=== PATIENT | male | born 1955 | race Caucasian/White ===

== ENCOUNTER 2016-09-28 00:04 | Inpatient (IN) | payer OTHER ==
[2016-09-28] MEDS ORDERED: 0.9 % SODIUM CHLORIDE 1,000 ML BAG IV ONE ×3 (00:19→03:26)
[2016-09-28] MEDS ORDERED: ONDANSETRON HCL IV 4 MG/2 ML VIAL IVP ONE ×2 (00:19→01:10)
--- NOTE | 2016-09-28 00:32 | Emergency Department Record ---
History of Present Illness - General Chief complaint: Nausea, Vomiting, Diarrhea Stated complaint: VOMITING,DIARHEA Time Seen by Provider: 09/28/16 00:23 Source: Patient Mode of Arrival: Ambulatory Limitations: No limitations - History of Present Illness Initial comments: The patient is here due to a 3-4 hour hx of frequent nausea, vomiting, and loose stools. He denies any AP but states he has had some abdominal cramping after the vomiting started. He denies any fever, chills, blood in the stool or vomit or back pain. The patient denies any bad food ingestion. He has had similar issues in the past with gastroenteritis and has had his gallbladder removed in the past. The patient does have a hx of chronic neutropenia and did just take a Neupogen shot yesterday. The patient also denies any recent antibiotic usage. MD complaint: Diarrhea, Nausea, Vomiting Onset/Timin -: Hour(s) Description of Vomiting: Other Description of Diarrhea: Water Associated Abdominal Pain: No Radiation: None Severity: Mild Quality: Other Consistency: Intermittent Improves with: None Worsens with: None Context: Other Associated Symptoms: Other - Related Data Home Medications Medication Instructions Recorded Confirmed Last Taken Allopurinol [Zyloprim] 100 mg PO BID 03/17/14 09/28/16 1 Day Ago Fenofibrate Nanocrystallized 48 mg PO DAILY 03/17/14 09/28/16 1 Day Ago [Tricor] Filgrastim [Neupogen] 60 mcg IJ ASDIR 03/17/14 09/28/16 09/27/16 Krill Oil 500 mg PO DAILY 03/17/14 09/28/16 1 Day Ago Lisinopril 5 mg PO DAILY 03/17/14 09/28/16 1 Day Ago Metformin HCl 1,000 mg MC BID 03/17/14 09/28/16 1 Day Ago Mirtazapine 45 mg PO QHS 03/17/14 09/28/16 1 Day Ago Multivitamin [Multi-Vitamin Daily] 1 each PO DAILY 03/17/14 09/28/16 1 Day Ago Duloxetine HCl [Cymbalta] 120 mg PO DAILY 10/10/15 09/28/16 1 Day Ago Finasteride [Proscar] 5 mg PO DAILY 10/10/15 09/28/16 1 Day Ago Insulin Glargine,Hum.rec.anlog 60 unit SQ BID 10/10/15 09/28/16 09/28/16 [Lantus] Atorvastatin Calcium [Lipitor] 20 mg PO DAILY 09/28/16 09/28/16 Unknown Cholecalciferol (Vitamin D3) 2,000 unit PO DAILY 09/28/16 09/28/16 Unknown [Vitamin D3] Allergies Allergy/AdvReac Type Severity Reaction Status Date / Time epinephrine Allergy muscle Verified 10/10/15 07:12 tension/FAUSTINO gemfibrozil Allergy hypergylcem Verified 10/10/15 07:12 ia Travel Screening - Travel/Exposure Within Last 30 Days Have you traveled within the last 30 days?: No - Travel/Exposure Within Last Year Have you traveled outside the [place] in the last year?: No - Additonal Travel Details Have you been exposed to anyone with a communicable illness?: No - Travel Symptoms Symptom Screening: None Review of Systems Constitutional: Reports: Malaise. Denies: Chills, Fever Eyes: Denies: Eye discharge ENT: Denies: Congestion, Dental pain, Other Respiratory: Denies: Cough, Dyspnea Cardiovascular: Denies: Arrhythmia, Chest pain Past Medical History - SOCIAL HISTORY Smoking Status: Former smoker Alcohol Use: Occassional Alcohol Use Comment: 2 drinks per week Drug Use: None - RESPIRATORY Hx Respiratory Disorders: No - CARDIOVASCULAR Hx Cardio Disorders: No - NEURO Hx Neuro Disorders: No - GI Hx GI Disorders: No - Hx Genitourinary Disorders: No - ENDOCRINE Hx Endocrine Disorders: Yes Hx Diabetes: Yes Hx Thyroid Disease: No - MUSCULOSKELETAL Hx Musculoskeletal Disorders: No - PSYCH Hx Psych Problems: Yes Hx Depression: Yes - HEMATOLOGY/ONCOLOGY Hx Hematology/Oncology Disorders: Yes Comment:: severe chronic neutropenia Family Medical History Any Significant Family History?: No Hx Cancer: Brother/Sister Hx Heart Disease: Grandparents Hx Stroke: Grandparents Physical Exam - General General Appearance: Alert, Oriented x3, Cooperative, No acute distress - Head Head exam: Atraumatic, Normocephalic, Normal inspection - Eye Eye exam: Normal appearance, PERRL - ENT Throat exam: Normal inspection. negative: Tonsillar erythema, Tonsillar exudate - Neck Neck exam: Normal inspection, Full ROM. negative: Tenderness - Respiratory Respiratory exam: Normal lung sounds bilaterally. negative: Respiratory distress - Cardiovascular Cardiovascular Exam: Regular rate, Normal rhythm, Normal heart sounds - GI/Abdominal GI/Abdominal exam: Soft, Normal bowel sounds. negative: Guarding, Rebound, Rigid, Tenderness - Extremities Extremities exam: Normal inspection, Full ROM, Normal capillary refill. negative: Tenderness - Neurological Neurological exam: Alert, Normal gait. negative: Abnormal gait, Motor sensory deficit Course Vital Signs 09/28/16 00:08 Temperature 97.5 F L Pulse Rate 113 H Respiratory 24 Rate Blood Pressure 161/109 Pulse Ox 97 - Reevaluation(s) Reevaluation #1: The patient is just finishing his 2nd liter of IVF and states he has no pain but is still quite nauseated. He has had 4 loose stools in the last hour. On exam his abdomen is very soft and nontender in all 4 quads. The patient's abdominal CT does not demonstrate any acute abnormalities. Due to the patient's condition not improving we will admit the patient for hydration and IV Cipro. 09/28/16 02:12 Reevaluation #2: The patient denies any new issues. He denies any AP, CP, SOB or any back pain. He is still nauseated and is dry heaving at times. On exam his abdomen is nontender in all 4 quads. 09/28/16 02:34 Reevaluation #3: The patient did have an episode of decreased BP associated with a blanching erythematous rash all over. The rash is not itchy and the patient did not have a fever on recheck. On exam his lungs were clear bilaterally. 09/28/16 03:30 Reevaluation #4: The patient is doing better at this time. His BP is stable at 100/65 with a HR of 90. The patient is resting comfortably in no pain or discomfort. He no longer is lightheaded or dizzy and his CXR was normal. We did change his admission to a monitored bed so they can monitor his BP and HR. Presently his 02 sat is 98% on 2 L 02. On repeat his temp is normal but he still does have a diffuse erythroderma blanching rash all over that is not pruritic. 09/28/16 04:01 09/28/16 04:04 Medical Decision Making - Data Complexity MDM Data: Labs Ordered and/or Reviewed, X-Ray Ordered and/or Reviewed, EKG Ordered and/or Reviewed - Lab Data Result diagrams: 09/28/16 00:16 09/28/16 00:16 - EKG Data -: EKG Interpreted by Me (Sinus tach at 112, Neg ischemic changes.) - Radiology Data Radiology results: Report reviewed (CT: No acute changes requiring surgery, Prob Mesenteric Adenitis CXR: Neg for any acute abnormality.) Disposition Disposition: Admit Clinical Impression: Diarrhea, infectious, adult Diarrhea Qualifiers: Diarrhea type: unspecified type Qualified Code(s): R19.7 - Diarrhea, unspecified Disposition: Still a Patient at [facility] Decision to Admit: Admit from ER Decision to Admit Date: 09/28/16 Decision to Admit Time: 02:14 Accepting Physician: Maria Teresa Time Discussed w/Accepting Physician: 02:14 Time of Disposition: 02:15
[2016-09-28 00:42] LABS: MEAN CELL VOLUME 88.8 fl (81-97); MEAN PLATELET VOLUME 10.2 fl (7.4-10.4); RED CELL DISTRIBUTION WIDTH 12.8 % (11.5-14.5)
[2016-09-28 00:49] LABS: HEMATOCRIT 47.5 % (42.0-52.0); MEAN CORPUSCULAR HEMOGLOBIN 32.3 pg (27-33); MEAN CORPUSCULAR HGB CONC 35.8 g/dl (32-36); PLATELET COUNT 245 K/uL (130-400); RED BLOOD COUNT 5.25 M/uL (4.40-5.70); WHITE BLOOD COUNT W/O DIFF 23.3 K/uL (4.2-12.2)
[2016-09-28 00:57] LABS: ACETONE,SERUM NEGATIVE (NEGATIVE)
[2016-09-28 01:04] LABS: ALBUMIN 4.8 gm/dL (3.5-5.0); ALKALINE PHOSPHATASE 194 U/L (38-126); ALT/SGPT 49 U/L (21-72); ANION GAP 16.5 (7-16); AST/SGOT 28 U/L (17-59); BILIRUBIN,TOTAL 1.21 mg/dL (0.2-1.3); BLOOD UREA NITROGEN 24 mg/dL (9-20); CARBON DIOXIDE 23.5 mmol/L (22-30); CREATININE 1.2 mg/dL (0.66-1.25); EST GLOMERULAR FILTRATION RATE > 60 ml/min; GLUCOSE,RANDOM 246 mg/dL (70-110); LIPASE 54 U/L (23-300); TOTAL PROTEIN 7.4 gm/dL (6.3-8.2)
[2016-09-28] MEDS ORDERED: PROMETHAZINE HCL 25 MG/ML VIAL IVP ONE (02:06)
[2016-09-28] MEDS ORDERED: CIPROFLOXACIN LACTATE/D5W 400 MG in DEXTROSE 1 BAG IVPB ONE (02:11)
[2016-09-28 02:47] LABS: CREATINE PHOSPHOKINASE 53 U/L (55-170)
[2016-09-28 03:00] LABS: CKMB 3.3 ug/L (0-6)
[2016-09-28 03:03] LABS: TROPONIN I < 0.012 ng/mL (0.00-0.034)
[2016-09-28] MEDS ORDERED: DIPHENHYDRAMINE HCL IV 50 MG/ML VIAL IVP ONE ×2 (03:28→04:06)
[2016-09-28] MEDS ORDERED: CEFTRIAXONE SODIUM 1 GM in 0.9 % SODIUM CHLORIDE 100ML 100 ML IVPB ONE (03:32)
[2016-09-28] MEDS ORDERED: METRONIDAZOLE IVPB 500 MG in SODIUM CHLORIDE 1 BAG IVPB ONE (04:29)
[2016-09-28] MEDS ORDERED: ONDANSETRON HCL IV 4 MG/2 ML VIAL IVP PRN (06:32)
[2016-09-28] MEDS ORDERED: CIPROFLOXACIN LACTATE/D5W 400 MG in DEXTROSE 1 BAG IVPB SCH (06:32)
[2016-09-28 06:51] LABS: MEAN PLATELET VOLUME 10.2 fl (7.4-10.4); RED CELL DISTRIBUTION WIDTH 13.9 % (11.5-14.5)
[2016-09-28 06:53] LABS: BLOOD UREA NITROGEN 25 mg/dL (9-20); CREATININE 1.2 mg/dL (0.66-1.25); EST GLOMERULAR FILTRATION RATE > 60 ml/min; GLUCOSE,RANDOM 251 mg/dL (70-110); LACTIC ACID 2.4 mmol/L (0.7-2.1)
[2016-09-28 07:01] LABS: HEMATOCRIT 43.8 % (42.0-52.0); HEMOGLOBIN 16.1 gm/dl (14.0-18.0); MEAN CELL VOLUME 86.6 fl (81-97); MEAN CORPUSCULAR HEMOGLOBIN 31.8 pg (27-33); MEAN CORPUSCULAR HGB CONC 36.8 g/dl (32-36); PLATELET COUNT 188 K/uL (130-400); RED BLOOD COUNT 5.06 M/uL (4.40-5.70)
[2016-09-28 07:02] LABS: WHITE BLOOD COUNT W/O DIFF 25.7 K/uL (4.2-12.2)
[2016-09-28 07:07] LABS: PLATELET ESTIMATE NORMAL (NORMAL)
[2016-09-28] MEDS: PANTOPRAZOLE SODIUM IV 40 MG VIAL IV SCH (08:25)
[2016-09-28] MEDS ORDERED: METFORMIN 500 MG TABLET PO SCH (10:00)
[2016-09-28] MEDS ORDERED: LEVEMIR FLEXTOUCH 100 UNIT/ML INSULIN PEN SQ SCH (10:00)
[2016-09-28] MEDS ORDERED: ALLOPURINOL 100 MG TAB PO SCH (10:00)
[2016-09-28] MEDS: DULOXETINE HCL 30 MG CAPSULE.DR PO SCH (11:41)
[2016-09-28] MEDS: METRONIDAZOLE 250 MG TABLET PO SCH ×2 (11:41→17:38)
[2016-09-28] MEDS: LISINOPRIL 5 MG TABLET PO SCH (11:42)
[2016-09-28] MEDS: Non-Formulary MISC (Finasteride [Proscar] 5 MG) PO SCH (11:51)
[2016-09-28 11:56] LABS: URINE APPEARANCE CLEAR; URINE BILIRUBIN NEGATIVE (NEGATIVE); URINE BLOOD NEGATIVE (NEGATIVE); URINE COLOR YELLOW; URINE KETONE NEGATIVE (NEGATIVE); URINE LEUKOCYTE ESTERASE NEGATIVE (NEGATIVE); URINE NITRITE NEGATIVE (NEGATIVE); URINE UROBILINOGEN 0.2 E.U./dL (0.20 - 1.00)
[2016-09-28] MEDS: 0.9 % SODIUM CHLORIDE 1000ML 1,000 ML IV PRN ×2 (14:42→21:31)
--- NOTE | 2016-09-28 14:46 | History and Physical Report ---
DATE OF DICTATION: 09/28/2016. CHIEF COMPLAINT: Diarrhea and vomiting. HISTORY OF PRESENT ILLNESS: This 52-year-old male presented with three to four hours of vomiting and diarrhea. He has had about 15 stools since 4:00 in the afternoon, 15 diarrhea stools, and 15 vomiting episodes. He came into the emergency room and was given intravenous fluids, and Dr. Chand admitted him to the hospital for further intravenous fluids and care for his C. difficile toxin which is positive. PAST MEDICAL HISTORY: He has idiopathic neutropenia; he uses Neupogen shots every other day. 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 Santos at the [facility]. His primary physician at the [facility] in [place] is My Roland. Diabetes. PAST SURGICAL HISTORY: Adult circumcision, sinus surgery, tonsillectomy, cholecystectomy, right rotator cuff surgery. MEDICATIONS ON ADMISSION: Metformin 1,000 mg b.i.d., lisinopril 5.0 mg daily. Neupogen 60 mg every other day; he gives the shots himself. Vitamin D 2,000 units a day, Zyloprim 100 mg b.i.d., krill oil 500 mg daily, Proscar 5.0 mg daily, fenofibrate 48 mg daily, Cymbalta 120 mg daily, mirtazapine 45 mg at h.s. which is Remeron. Multiple vitamins one q. daily, insulin 60 units of Lantus b.i.d. ALLERGIES: Epinephrine and Gemfibrozil. FAMILY/PSYCHOSOCIAL HISTORY: Unremarkable. He is a former smoker; he quit in 1997. He drinks two drinks per week. REVIEW OF SYSTEMS: HEENT: No upper respiratory infection symptoms, cough, cold, or congestion. Cardiovascular: No chest pain, palpitations, or arrhythmias. Respiratory: No cough, cold, or congestion. Gastrointestinal: See Chief Complaint. Nausea, vomiting, and diarrhea. He ate at [employer]. about two weeks ago. Genitourinary: No dysuria, hematuria, frequency, or burning on urination. Musculoskeletal: No joint or bone abnormalities. Neurologic: No cerebrovascular accident, paralysis, or paraesthesias. Endocrine: Diabetes mellitus. No hypothyroidism. PHYSICAL EXAMINATION: General: Height is 6 feet. Weight is 227 pounds. Vital Signs: Temperature is 98.1, pulse is 96, blood pressure is 127/62, respiratory rate is 18, pulse oximetry is 95% on room air. HEENT: Pupils are equal, round, and reactive to light and accommodation. Extraocular muscles are intact. Funduscopic examination is benign. The tympanic membranes are leong. Neck: The neck is supple. No jugular venous distension. No hepatojugular reflex. No carotid bruit. The thyroid is smooth. Cardiovascular: Regular rate and rhythm without murmurs, clicks, rubs, or gallops. Respiratory: Clear to auscultation and percussion. Abdomen: Soft and slightly painful in all four quadrants. No rebound or rigidity or peritoneal signs. No hepatosplenomegaly. Extremities: No pitting edema. No cyanosis. No clubbing. Full range of motion. Peripheral pulses are good. Breasts: Normal male breasts. Rectal and Genitalia: Deferred. Neurological Examination: Cranial nerves II through XII are intact. No gross defect. Sensation is normal. Strength is normal. Deep tendon reflexes are equal bilaterally. Babinski is negative. Mental Status: Alert and oriented times three. IMPRESSIONS: 1. C. difficile gastroenteritis. 2. Dehydration. 3. Vomiting and diarrhea. PLAN: Oral Flagyl 500 mg q. daily and intravenous fluids. Christos Morel D.O. Date Time JOB NUMBER: [id number] MTDD
[2016-09-28] MEDS: HYDROMORPHONE HCL 1 MG/ML CPJ IVP PRN (19:02)
[2016-09-28] MEDS ORDERED: MIRTAZAPINE 15 MG TABLET PO SCH (22:00)
[2016-09-29] MEDS: METRONIDAZOLE 250 MG TABLET PO SCH ×2 (01:37→09:56)
[2016-09-29] MEDS: HYDROMORPHONE HCL 1 MG/ML CPJ IVP PRN (01:58)
[2016-09-29 08:25] LABS: LACTIC ACID 0.8 mmol/L (0.7-2.1)
[2016-09-29] MEDS: Non-Formulary MISC (Finasteride [Proscar] 5 MG) PO SCH (09:52)
[2016-09-29] MEDS: PANTOPRAZOLE SODIUM IV 40 MG VIAL IV SCH (09:55)
[2016-09-29] MEDS: DULOXETINE HCL 30 MG CAPSULE.DR PO SCH (09:56)
[2016-09-29] MEDS: LISINOPRIL 5 MG TABLET PO SCH (09:56)
[2016-09-29] MEDS ORDERED: FILGRASTIM IJ SCH (10:00)
--- NOTE | 2016-09-29 12:35 | Discharge Note ---
Discharge Note - Date Date of Discharge Note: 09/29/16 Disposition: Home, Self-Care Instructions: Metronidazole (By mouth) Additional Instructions: eat yogurt bland diet [facility] call front office agent next week and informed him what happened and tell them we recommended he skip todays does of neupogen because white count elevated and then resume it in 48 hours Prescriptions: Metronidazole [Flagyl] 500 mg PO TID #42 tablet Referrals: VEENA JONES [Primary Care Provider] - Forms: Patient Portal Access
[2016-09-29 18:27] LABS: BLOOD UREA NITROGEN 13 mg/dL (9-20); CREATININE 1.1 mg/dL (0.66-1.25); EST GLOMERULAR FILTRATION RATE > 60 ml/min; GLUCOSE,RANDOM 98 mg/dL (70-110)
--- NOTE | 2016-10-01 07:32 | CT SCAN REPORT ---
EXAM: CT OF THE ABDOMEN AND PELVIS WITHOUT CONTRAST HISTORY: VOMITING AND DIARRHEA. TECHNIQUE: CT of the abdomen and pelvis was performed without oral or IV contrast. This limits evaluation of bowel and solid visceral organs. Comparison: Prior CT from 10/10/15. FINDINGS: Limited evaluation of the lung bases shows partial visualization of multiple bilateral pulmonary nodules, however, these were also present on the prior exam. The osseous structures are grossly intact. Probable fatty infiltrative changes to the liver, as before. The spleen is enlarged at 18 cm. The adrenal glands and pancreas are unremarkable. The gallbladder is surgically absent. Negative for urinary tract calculus or hydronephrosis. No gross evidence for bowel obstruction. No free air or free fluid. Occasional sigmoid diverticula without CT evidence for diverticulitis. The appendix is not identified with certainty. No pericecal inflammation. Severe nonspecific, nonenlarged as well as mildly enlarged mesenteric lymph nodes are present. These are also unchanged from the prior exam. The largest is in the central mesentery and measures 1.9 x 1.3 cm. Fat containing right inguinal hernia. The prostate is mildly enlarged. Correlate with PSA level. IMPRESSION: 1. PARTIAL VISUALIZATION OF MULTIPLE BILATERAL PULMONARY NODULES, THESE WERE ALSO PRESENT PREVIOUSLY. 2. FATTY INFILTRATIVE CHANGE TO THE LIVER. STABLE SPLENOMEGALY AT 18 CM. 3. SEVERAL NONENLARGED WELL ENLARGED MESENTERIC LYMPH NODES. THESE WERE ALSO PRESENT PREVIOUSLY AND REMAIN NONSPECIFIC. 4. FAT CONTAINING RIGHT INGUINAL HERNIA. OCCASIONAL SIGMOID DIVERTICULA WITHOUT CT EVIDENCE FOR DIVERTICULITIS. JOB NUMBER: [id number] [facility]
--- NOTE | 2016-10-01 07:39 | RADIOLOGY REPORT ---
EXAM: PORTABLE CHEST HISTORY: DIFFICULTY BREATHING. TECHNIQUE: A semi-erect portable view of the chest was obtained. Comparison: None. Encounter: Initial. FINDINGS: Partial visualization of vague nodules bilaterally. Subsegmental atelectasis in the right lung base. The lungs are otherwise clear. The heart size is normal. No pneumothorax. IMPRESSION: PARTIAL VISUALIZATION OF BILATERAL PULMONARY NODULES. CONSIDER FURTHER ASSESSMENT WITH CT CHEST. JOB NUMBER: [id number] MTDD
--- NOTE | 2016-10-03 16:56 | Discharge Summary ---
DATE OF ADMISSION: 09/28/2016 DATE OF DISCHARGE: 09/29/2016 at 11:30 a.m. DISCHARGE DIAGNOSES: 1. C difficile gastroenteritis. 2. Neutropenia requiring Neupogen shots. His white count is elevated. I called the Hematology Fellow, Dr. Lott, who is covering for Dr. Santos, and he recommended skipping one dose of the Neupogen, today's dose, and go back on it Saturday, calling Dr. Santos next week to kind of go over what he is doing and they may want to see him before his October 2016 appointment. 3. Diabetes mellitus, using Lantus. Recommended he go back to Lantus once a day until sugars start to come up, then going to twice a day. 4. Hypercholesterolemia. 5. Anxiety. ATTENDING PHYSICIAN: Christos Morel DO REASON FOR HOSPITALIZATION: Diarrhea and vomiting. This 52-year-old male presented to the Emergency Department with 3 to 4 hours of vomiting and diarrhea. He had about 15 stools since 4 a.m. and 15 vomiting episodes. He was seen by Dr. Chand and diagnosed with C difficile gastroenteritis. Admitted to the hospital for IV fluids, nausea medication, and start him Flagyl 500 mg 3 times a day orally. IV fluids. SIGNIFICANT FINDINGS FROM EXAMINATION: As stated, C diff positive. His white count was 23,300 when he came in. It went up to 25,700, which is expected with the C diff gastroenteritis and the Neupogen shots that he is getting every [address] revealed appendix was normal. Enlarged lymph nodes throughout the mesentery. The findings are nonspecific. Incidentally noted left-sided inferior vena cava, which is a normal anatomic variant. Pulmonary nodules in bilateral lower lungs measuring 12 mm. These were present on the 2013 CT scan; however, the radiologist did not have the images to compare. EKG showing normal sinus tachycardia. No acute ST/T-wave changes. Laboratory: WBC as stated was 23,300. His hemoglobin was 16.1. Bands were 69 and lymphs were 12. His potassium was 4.1. BUN 25. Creatinine was 1.2. Glucose was running about 152, 145. We held has Lantus because he was not eating, and when he started eating on the day of discharge, we recommended going back to Lantus once a day until his sugars start to go up and go back to twice a day. His lactic acid was 2.4 in the Emergency Department, and normalized at 0.8. His troponin I was negative. CK-MB was negative. Lipase was normal. The UA showing specific gravity of 1030. Hemoccult stool was negative. A few white cells observed. The C diff toxin was positive. THERAPY PROVIDED: IV fluids, Zofran, and Phenergan. Patient improved dramatically with the oral Flagyl, and he had 1 stool in the last 12 hours. He wants to go home. He ate a meal, and he is feeling much better. CONDITION ON DISCHARGE: Much improved. DISCHARGE INSTRUCTIONS: Follow up with his primary doctor at the [facility], which is Dr. My Roland in 1 to 2 to 3 weeks. He is scheduled about 3 weeks, sooner if he is having trouble. Follow up with the motor expert, Dr. Santos by calling tomorrow, mentioning that I called the Fellow at [place], and we held 1 dose of Neupogen because the white count was elevated, and he is to go back on his schedule then every 48 hours after that, this Saturday coming. Continue his home medication of metformin 1000 mg b.i.d., lisinopril 5 mg daily, Neupogen starting on Saturday 60 mg every other day (he gives himself these shots), vitamin D 2000 units a day, Zyloprim 100 mg b.i.d., krill oil 500 mg daily, Proscar 5 mg daily, fenofibrate 48 mg daily, Cymbalta 120 mg daily, mirtazapine 45 mg at bedtime, and insulin/Lantus 60 mg once a day until his sugars start to go up, then he can go back to twice a day if his glucose goes high. ADDENDUM He wanted his prescription so that he could drive to the [facility] in [place] on Saturday. However, he wanted me to call the cost of it. I did not want him to have a 24-hour stopping of the Flagyl while he waits for the [facility] to pay for the prescription. We called the pharmacy, [facility], they said 250 mg pills for 14-day supply, 500 three times a day would cost him 10 dollars. So I called into [facility] 250 mg pills, 2 pills 3 times a day for 14 days. JULIO C
== END 2016-09-29 13:55 | disposition home or self-care (01) | DRG 373 ==
LOC: ER 00:04 → MEDSURG 03:08
PROVIDERS: ADMIT Emergency Medicine; ATTEND Emergency Medicine
DX: A04.7 Enterocolitis due to Clostridium difficile (principal); E86.0 Dehydration
CPT/HCPCS: 36416; 71010; 74176; 80048; 80076; 81003; 82009; 82272; 82550; 82553; 82948; 83605; 83690; 84484; 85027; 86140; 87427; 87493; 89055; 93005; 93010; 96361; 96365; 96375; 96376; 99223; 99239; 99285; C9113; J1170; J1200; J2405; J2550; J7030

== ENCOUNTER 2016-11-19 19:35 | Emergency (ER) | payer OTHER ==
--- NOTE | 2016-11-19 21:22 | Emergency Department Record ---
History of Present Illness - General Chief Complaint: Fall Injury Stated Complaint: FALL Time Seen by Provider: 11/19/16 20:25 Source: Patient Mode of Arrival: Ambulatory Limitations: No limitations - History of Present Illness Initial Comments: The patient is here due to injuring the L side of his Jaw. He fell a few feet of a ladder and banged the L side of his jaw on an object. He had no head injury , neck injury or LOC. Now he is having pain over his jaw. He denies any malloclusion. He also denies any PARKER, neck pain, CP, SOB. The patient is not on any blood thinners. 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 Place Fall Occurred: Other Loss of Consciousness: None Prolonged Down Time?: No Location: Face Severity: Moderate Severity scale (1-10): 8 Quality: Aching - Related Data Home Medications Medication Instructions Recorded Confirmed Last Taken Allopurinol [Zyloprim] 100 mg PO BID 03/17/14 09/28/16 1 Day Ago ~10/09/15 Fenofibrate Nanocrystallized 48 mg PO DAILY 03/17/14 09/28/16 1 Day Ago [Tricor] ~10/09/15 Filgrastim [Neupogen] 60 mcg IJ Q48H 03/17/14 09/28/16 09/27/16 Krill Oil 500 mg PO DAILY 03/17/14 09/28/16 1 Day Ago ~10/09/15 Mirtazapine 45 mg PO QHS 03/17/14 09/28/16 1 Day Ago ~10/09/15 Multivitamin [Multi-Vitamin Daily] 1 each PO DAILY 03/17/14 09/28/16 1 Day Ago ~10/09/15 Duloxetine HCl [Cymbalta] 120 mg PO DAILY 10/10/15 09/28/16 1 Day Ago ~10/09/15 Finasteride [Proscar] 5 mg PO DAILY 10/10/15 09/28/16 1 Day Ago ~10/09/15 Insulin Glargine,Hum.rec.anlog 60 unit SQ BID 10/10/15 09/28/16 09/28/16 [Lantus] Cholecalciferol (Vitamin D3) 2,000 unit PO DAILY 09/28/16 09/28/16 Unknown [Vitamin D3] Lisinopril [Prinivil] 5 mg PO DAILY 09/28/16 09/28/16 Unknown Metformin HCl 1,000 mg PO BID 09/28/16 09/28/16 Unknown Previous Rx's Medication Instructions Recorded Metronidazole [Flagyl] 500 mg PO TID #42 tablet 09/29/16 Allergies Allergy/AdvReac Type Severity Reaction Status Date / Time epinephrine Allergy muscle Verified 10/10/15 07:12 tension/FAUSTINO gemfibrozil Allergy hypergylcem Verified 10/10/15 07:12 ia promethazine HCl Allergy RASH Verified 09/29/16 04:43 [From Phenergan] Travel Screening - Travel/Exposure Within Last 30 Days Have you traveled within the last 30 days?: No Review of Systems Constitutional: Denies: Chills, Fever Eyes: Denies: Eye discharge ENT: Denies: Congestion Respiratory: Denies: Cough, Dyspnea Past Medical History - SOCIAL HISTORY Smoking Status: Former smoker Alcohol Use: None Drug Use: None - RESPIRATORY Hx Respiratory Disorders: Yes Hx Pneumonia: Yes - CARDIOVASCULAR Hx Cardio Disorders: No - NEURO Hx Neuro Disorders: Yes Hx Neuropathy: Yes 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 - GI Hx GI Disorders: No Hx Abdominal Pain: Yes Hx Nausea/Vomiting: Yes - Hx Genitourinary Disorders: Yes Hx Kidney Stones: Yes - ENDOCRINE Hx Endocrine Disorders: Yes Hx Diabetes: Yes Hx Thyroid Disease: No - MUSCULOSKELETAL Hx Musculoskeletal Disorders: No - PSYCH Hx Psych Problems: Yes Hx Depression: Yes - HEMATOLOGY/ONCOLOGY Hx Hematology/Oncology Disorders: Yes Comment:: severe chronic neutropenia Family Medical History Any Significant Family History?: Yes Hx Cancer: Brother/Sister Hx Heart Disease: Grandparents Hx Stroke: Grandparents Physical Exam - General General Appearance: Alert, Oriented x3, Cooperative, No acute distress - Head Head exam: Atraumatic, Normocephalic, Normal inspection - Eye Eye exam: Normal appearance, PERRL - ENT ENT exam: Normal exam, Mucous membranes moist, Normal external ear exam, Normal orophraynx, TM's normal bilaterally, Other (There is tenderness to the L side of the mandible but no swelling or bruising is appreciated.) Throat exam: Normal inspection. negative: Tonsillar erythema, Tonsillar exudate - Neck Neck exam: Normal inspection, Full ROM. negative: Tenderness - Respiratory Respiratory exam: Normal lung sounds bilaterally. negative: Respiratory distress - Cardiovascular Cardiovascular Exam: Regular rate, Normal rhythm, Normal heart sounds Course Vital Signs 11/19/16 20:19 Temperature 98.3 F Pulse Rate [ 94 H Pulse Ox Probe] Respiratory 16 Rate Blood Pressure 137/72 [Left Arm] Pulse Ox 97 - Reevaluation(s) Reevaluation #1: The patient is doing well. He still has no swelling or bruising to the L mandible. I did explain to him the xrays are neg. He is to return home and take his home pain medicines and use ice if needed. 11/19/16 21:31 Medical Decision Making - Data Complexity MDM Data: X-Ray Ordered and/or Reviewed (Mandible: Neg.) Disposition Disposition: Discharge Clinical Impression: Contusion of mandibular joint area Qualifiers: Encounter type: initial encounter Qualified Code(s): S00.83XA - Contusion of other part of head, initial encounter Disposition: Home, Self-Care Condition: (1) Good Instructions: Contusion in Adults (ED) Additional Instructions: Please use ice to the area as needed for 2 days for pain. Take your home pain medicines if needed. Return to the ER for any problems or issues. Forms: Patient Portal Access Time of Disposition: 21:23
== END 2016-11-19 21:49 | disposition home or self-care (01) ==
LOC: ER 19:35
DX: S00.83XA Contusion of other part of head, initial encounter (principal); W11.XXXA Fall on and from ladder, initial encounter
CPT/HCPCS: 70110; 99283

== ENCOUNTER 2017-01-11 19:50 | Emergency (ER) | payer OTHER ==
[2017-01-11] MEDS ORDERED: ONDANSETRON HCL IV 4 MG/2 ML VIAL IV ONE (20:14)
[2017-01-11] MEDS ORDERED: 0.9 % SODIUM CHLORIDE 1,000 ML BAG IV ONE ×2 (20:14→22:49)
--- NOTE | 2017-01-11 20:19 | Emergency Department Record ---
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 Today he awoke feeling terrible, stomach bothering him everywhere, and proceeded to have nausea, vomiting of mostly dry heaves, and TNTC episodes of diarrhea along with feeling feverish and chilling. He has not taken antibiotics in the past 3 months. He has low back pain but this is unchanged from his chronic low back pain of many months. MD complaint: Diarrhea, Nausea, Vomiting Onset/Timin -: Hour(s) Description of Diarrhea: Water Associated Abdominal Pain: No Location: Other Severity scale (1-10): 7 Associated Symptoms: Nausea/vomiting - Related Data Home Medications Medication Instructions Recorded Confirmed Last Taken Allopurinol [Zyloprim] 100 mg PO BID 03/17/14 01/11/17 01/10/17 Fenofibrate Nanocrystallized 48 mg PO DAILY 03/17/14 01/11/17 01/10/17 [Tricor] Filgrastim [Neupogen] 60 mcg IJ Q48H 03/17/14 01/11/17 01/10/17 Mirtazapine 45 mg PO QHS 03/17/14 01/11/17 01/10/17 Multivitamin [Multi-Vitamin Daily] 1 each PO DAILY 03/17/14 01/11/17 01/10/17 Duloxetine HCl [Cymbalta] 120 mg PO DAILY 10/10/15 01/11/17 01/10/17 Finasteride [Proscar] 5 mg PO DAILY 10/10/15 01/11/17 01/10/17 Insulin Glargine,Hum.rec.anlog 60 unit SQ BID 10/10/15 01/11/17 01/10/17 [Lantus] Lisinopril [Prinivil] 5 mg PO DAILY 09/28/16 01/11/17 01/10/17 Metformin HCl 1,000 mg PO BID 09/28/16 01/11/17 01/10/17 Albiglutide [Tanzeum] 50 mg SQ WEEKLY 01/11/17 01/11/17 01/11/17 21:18 Alprostadil [Caverject] 40 mcg IC ASDIR PRN 01/11/17 01/11/17 Unknown Atorvastatin Calcium 80 mg PO DAILY 01/11/17 01/11/17 01/10/17 Cholecalciferol (Vitamin D3) 800 unit PO DAILY 01/11/17 01/11/17 01/10/17 [Vitamin D] Clobetasol Propionate/Emoll 30 gm TP ASDIR PRN 01/11/17 01/11/17 Unknown [Clobetasol Emollient 0.05% Crm] Naproxen [Naprosyn] 500 mg PO DAILY PRN 01/11/17 01/11/17 01/10/17 Tadalafil [Cialis] 20 mg PO WEEKLY 01/11/17 01/11/17 01/06/17 Urea [Ureacin-20] 113.4 gm TP ASDIR PRN 01/11/17 01/11/17 Unknown Allergies Allergy/AdvReac Type Severity Reaction Status Date / Time epinephrine Allergy muscle Verified 10/10/15 07:12 tension/FAUSTINO gemfibrozil Allergy hypergylcem Verified 10/10/15 07:12 ia promethazine HCl Allergy RASH Verified 09/29/16 04:43 [From Phenergan] Travel Screening - Travel/Exposure Within Last 30 Days Have you traveled within the last 30 days?: No - Travel Symptoms Symptom Screening: None Review of Systems Reviewed: No additional complaints except as noted below Constitutional: Reports: As per HPI. Denies: Chills, Fever, Malaise, Night sweats, Weakness, Weight change Eyes: Reports: As per HPI. Denies: Eye discharge, Eye pain, Photophobia, Vision change ENT: Reports: As per HPI. Denies: Congestion, Dental pain, Ear pain, Epistaxis , Hearing loss, Throat pain Respiratory: Reports: As per HPI. Denies: Cough, Dyspnea, Hemoptysis, Stridor, Wheezes Cardiovascular: Reports: As per HPI. Denies: Arrhythmia, Chest pain, Dyspnea on exertion, Edema, Murmurs, Orthopnea, Palpitations, Paroxysmal nocturnal dyspnea, Rheumatic Fever, Syncope Endocrine: Reports: As per HPI. Denies: Fatigue, Heat or cold intolerance, Polydipsia, Polyuria Gastrointestinal: Reports: As per HPI. Denies: Abdominal pain, Constipation, Diarrhea, Hematemesis, Hematochezia, Melena, Nausea, Vomiting Genitourinary: Reports: As per HPI. Denies: Dysuria, Frequency, Hematuria, Incontinence, Retention, Testicular pain, Testicular mass, Urgency Musculoskeletal: Reports: As per HPI. Denies: Arthralgia, Back pain, Gout, Joint swelling, Myalgia, Neck pain Skin: Reports: As per HPI. Denies: Bruising, Change in color, Change in hair/ nails, Lesions, Pruritus, Rash Neurological: Reports: As per HPI. Denies: Abnormal gait, Confusion, Headache, Numbness, Paresthesias, Seizure, Tingling, Tremors, Vertigo, Weakness Psychiatric: Reports: As per HPI. Denies: Anxiety, Auditory hallucinations, Depression, Homicidal thoughts, Suicidal thoughts, Visual hallucinations Hematological/Lymphatic: Reports: As per HPI. 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 - GI Hx GI Disorders: No Hx Abdominal Pain: Yes Hx Nausea/Vomiting: Yes Comment:: C-dif x2 in last 15 mos (12/2016) - Hx Genitourinary Disorders: Yes Hx Kidney Stones: Yes - ENDOCRINE Hx Endocrine Disorders: Yes Hx Diabetes: Yes Hx Thyroid Disease: No - MUSCULOSKELETAL Hx Musculoskeletal Disorders: No - PSYCH Hx Psych Problems: Yes Hx Depression: Yes - HEMATOLOGY/ONCOLOGY Hx Hematology/Oncology Disorders: Yes Comment:: severe chronic neutropenia Family Medical History Any Significant Family History?: Yes Hx Cancer: Brother/Sister Hx Heart Disease: Grandparents Hx Stroke: Grandparents Physical Exam - General General Appearance: Alert, Oriented x3, Cooperative, Moderate distress - Head Head exam: Normal inspection - Eye Eye exam: Normal appearance, PERRL Pupils: Normal accommodation - ENT ENT exam: Normal exam, Mucous membranes dry, Normal external ear exam, Normal orophraynx, TM's normal bilaterally Ear exam: Normal external inspection. negative: External canal tenderness Nasal Exam: Normal inspection. negative: Discharge, Sinus tenderness Mouth exam: Normal external inspection, Tongue normal Teeth exam: Normal inspection. negative: Dental caries Throat exam: Normal inspection. negative: Tonsillar erythema, Tonsillar exudate - Neck Neck exam: Normal inspection, Full ROM. negative: Lymphadenopathy, Meningismus , Tenderness - Respiratory Respiratory exam: Normal lung sounds bilaterally. negative: Accessory muscle use, Chest wall tenderness, Respiratory distress - Cardiovascular Cardiovascular Exam: Normal rhythm, Normal heart sounds, Tachycardia - GI/Abdominal GI/Abdominal exam: Soft, Normal bowel sounds, Tenderness (diffuse vague tenderness all quadrants, soft, no rebound) - Rectal Rectal exam: Deferred - exam: Deferred - Extremities Extremities exam: Normal inspection, Full ROM, Normal capillary refill. negative: Tenderness - Back Back exam: Reports: Normal inspection, Full ROM. Denies: CVA tenderness (R), CVA tenderness (L), Muscle spasm, Rash noted, Tenderness - Neurological Neurological exam: Alert, CN II-XII intact, Normal gait, Oriented X3, Reflexes normal - Psychiatric Psychiatric exam: Normal affect, Normal mood - Skin Skin exam: Dry, Intact, Normal color, Warm Course Vital Signs 01/11/17 19:59 Temperature 97.7 F Pulse Rate [ 118 H Pulse Ox Probe] Respiratory 20 Rate Blood Pressure 125/79 [Left Arm] Pulse Ox 98 - Reevaluation(s) Reevaluation #1: Patient states that he takes neupogen shots every other evening, last one last night, for his neutropenia. Without these his absolute WBC count is less than 1. When he is 'healthy' and taking these shots his WBC is around 6-8. Tonight he has a 24.5 WBC count which he says is high for him and likely due to tonight' s illness. 01/11/17 22:15 01/11/17 22:15 Reevaluation #2: [facility] [place] 01/12/17 01:13 Reevaluation #3: YOANA Neves who accepts patient in transfer to [facility]. 01/12/17 04:09 Reevaluation #4: Patient is more comfortable with decreased pain, pulse is borderline tachycardia , BP remains stable around 118/56. Awaiting transfer to [facility]. 01/12/17 04:13 Medical Decision Making - Management Options MDM Management: Additional Work-up Planned (e.g. ADM/Transfer/OP Study) ( Transfer to [facility] for direct admit.) - Data Complexity MDM Data: Labs Ordered and/or Reviewed (WBC 24.5; BUN 27; CR 1.3), X-Ray Ordered and/or Reviewed (CTR abd/Pelvis: ) - Lab Data Result diagrams: 01/11/17 20:23 01/11/17 20:23 Disposition Disposition: Transfer Clinical Impression: Nausea vomiting and diarrhea, Dehydration, Pulmonary nodules/lesions, multiple , Mesenteric lymphadenopathy, Renal insufficiency Abdominal pain Qualifiers: Abdominal location: generalized Qualified Code(s): R10.84 - Generalized abdominal pain Type 2 diabetes mellitus Qualifiers: Diabetes mellitus complication status: without complication 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 Neves @ [facility] Time Discussed w/Accepting Physician: 04:12 Condition: (2) Stable
[2017-01-11 20:30] LABS: HEMATOCRIT 50.8 % (42.0-52.0); HEMOGLOBIN 18.2 gm/dl (14.0-18.0); MEAN CELL VOLUME 84.2 fl (81-97); MEAN CORPUSCULAR HGB CONC 35.8 g/dl (32-36); MEAN PLATELET VOLUME 10.5 fl (7.4-10.4); PLATELET COUNT 347 K/uL (130-400); RED BLOOD COUNT 6.03 M/uL (4.40-5.70); RED CELL DISTRIBUTION WIDTH 13.8 % (11.5-14.5)
[2017-01-11 20:40] LABS: MEAN CORPUSCULAR HEMOGLOBIN 30.1 pg (27-33)
[2017-01-11 20:41] LABS: WHITE BLOOD COUNT W/O DIFF 24.5 K/uL (4.2-12.2)
[2017-01-11 20:42] LABS: ALBUMIN 4.5 gm/dL (3.5-5.0); ANION GAP 11.7 (7-16); BILIRUBIN,TOTAL 0.88 mg/dL (0.2-1.3); CARBON DIOXIDE 24.3 mmol/L (22-30); CREATININE 1.3 mg/dL (0.66-1.25); TOTAL PROTEIN 7.3 gm/dL (6.3-8.2)
[2017-01-11] MEDS ORDERED: ONDANSETRON HCL IV 4 MG/2 ML VIAL IVP ONE (22:49)
[2017-01-11 22:56] LABS: CRYPTOSPORIDIUM PARVUM ANTIGEN NOT DETECTED (NOT DETECT); GIARDIA LAMBLIA ANTIGEN NOT DETECTED (NOT DETECT); ROTOVIRUS NOT DETECTED
[2017-01-11 23:12] LABS: URINE APPEARANCE CLEAR; URINE BILIRUBIN NEGATIVE (NEGATIVE); URINE BLOOD NEGATIVE (NEGATIVE); URINE COLOR YELLOW; URINE KETONE NEGATIVE (NEGATIVE); URINE LEUKOCYTE ESTERASE NEGATIVE (NEGATIVE); URINE NITRITE NEGATIVE (NEGATIVE); URINE UROBILINOGEN 0.2 E.U./dL (0.20 - 1.00)
[2017-01-11 23:21] LABS: URINE MUCUS LIGHT; URINE WBC 0 - 2 (0-2/hpf)
[2017-01-11 23:28] LABS: MOLECULAR C DIFF TOXIN SCREEN NOT DETECTED
[2017-01-12] MEDS ORDERED: HYDROMORPHONE HCL 1 MG/ML CPJ IVP ONE (01:11)
[2017-01-12] MEDS ORDERED: DIPHENHYDRAMINE HCL IV 50 MG/ML VIAL IVP ONE (01:12)
[2017-01-12] MEDS ORDERED: 0.9 % SODIUM CHLORIDE 1,000 ML BAG IV ONE (03:27)
--- NOTE | 2017-01-13 21:49 | CT SCAN REPORT ---
EXAM: CT SCAN ABDOMEN/PELVIS W CONTRAST HISTORY: VOMITING AND WATERY DIARRHEA. TECHNIQUE: Standard CT imaging of the abdomen and pelvis was performed with contrast following the bolus administration of 100 mL of Omnipaque-300. COMPARISON: 09/28/16 and 10/10/15. FINDINGS: There are multiple scattered nodules at the lung bases bilaterally, which are unchanged from the previous exams. Mild parenchymal scarring is also present at the right lung base. There are minor coronary artery calcifications. There is diffuse fatty infiltration of the liver. The gallbladder is surgically absent. There is no biliary ductal dilatation. The pancreas and adrenal glands are normal. The spleen is enlarged and not significantly different from the prior study. There are multiple nonenlarged and mildly enlarged lymph nodes within the portacaval, celiac axis, and mesenteric regions. The largest individual lymph node is located within the mesentery and measures 1.4 cm in short axis. This previously measured 1.5 cm in short axis. No new or enlarging lymph nodes are identified. There are mild atherosclerotic changes within the aorta with no aneurysm or dissection. The IVC is left-sided below the level of the renal veins. There is an 11 mm round lesion at the inferior pole of the left kidney. This measures greater density than expected for a simple cyst. A follow-up MRI of the kidneys is recommended for further characterization. The kidneys and ureters are otherwise normal. There are a few scattered diverticula within the colon with no evidence for acute diverticulitis. The large and small bowel loops are otherwise unremarkable. There is no pneumoperitoneum or ascites. There is a lobulated, somewhat exophytic-appearing hyperdense mass at the floor of the urinary bladder. This may represent lobular extension of the prostate gland. Cystoscopy is recommended for further characterization. There are small fat-containing umbilical hernias bilaterally. IMPRESSION: 1. NO ACUTE INTRAABDOMINAL PATHOLOGY. 2. STABLE SCATTERED NODULES WITHIN THE LUNG BASES BILATERALLY. 3. THERE ARE MULTIPLE NONENLARGED AND MILDLY ENLARGED RETROPERITONEAL AND MESENTERIC LYMPH NODES, WHICH ARE NOT SIGNIFICANTLY DIFFERENT FROM THE PRIOR STUDY. 4. STABLE SPLENOMEGALY. 5. THERE IS AN EXOPHYTIC MASS-LIKE AREA ALONG THE FLOOR OF THE URINARY BLADDER. CYSTOSCOPY IS RECOMMENDED FOR FURTHER CHARACTERIZATION. 6. AN 11 MM HYPERDENSE LESION AT THE INFERIOR POLE OF THE LEFT KIDNEY. THIS DOES NOT REPRESENT A SIMPLE CYST. FOLLOW-UP MRI OF THE KIDNEYS IS RECOMMENDED FOR FURTHER CHARACTERIZATION. 7. SMALL FAT-CONTAINING INGUINAL HERNIAS BILATERALLY, RIGHT GREATER THAN LEFT. 8. MINOR SIGMOID DIVERTICULOSIS WITH NO DIVERTICULITIS. JOB NUMBER: [id number] [facility]
== END 2017-01-12 07:05 ==
LOC: ER 19:50
DX: R11.2 Nausea with vomiting, unspecified (principal); R19.7 Diarrhea, unspecified; E86.0 Dehydration; N28.9 Disorder of kidney and ureter, unspecified; R91.8 Other nonspecific abnormal finding of lung field; R10.84 Generalized abdominal pain; M54.5 Low back pain; D70.9 Neutropenia, unspecified; I88.0 Nonspecific mesenteric lymphadenitis; E11.9 Type 2 diabetes mellitus without complications; Z79.4 Long term (current) use of insulin; Z79.84 Long term (current) use of oral hypoglycemic drugs
CPT/HCPCS: 99285 ×2; 96376; 96374; 96375; 96361; 83690; 87329; 80076; 80048; 36416; 81001; 89055; 87425; 82948; 87427; 87493; 85027; 74177; Q9967; J2405; J1170; J1200; J7030

== ENCOUNTER 2018-02-17 07:12 | Emergency (ER) | payer OTHER ==
[2018-02-17] MEDS ORDERED: CEPHALEXIN 500 MG CAPSULE PO STA (07:26)
--- NOTE | 2018-02-17 07:26 | Emergency Department Record ---
History of Present Illness - General Chief complaint: Bite Insect/other Stated complaint: BUG BITE ON ANKLE Time Seen by Provider: 02/17/18 07:18 Source: Patient Mode of Arrival: Ambulatory Limitations: No limitations - History of Present Illness Initial comments: 62 yo male presents with a concerns with a possible bug bite on the left ankle. He noted pain at 2am over the medial malleolus. No fevers, swelling, trauma, redness. The area does not itch. No foot pain. He did not specifically see an insect bite him. NO calf pain or tenderness. No streaking redness. He has a 4pm doctor's appointment today with his PCP as well. MD complaint: Rash -: Unknown Location: L foot Severity: Moderate Severity scale (1-10): 2 Quality: Burning Improves with: Other Worsens with: Movement, Rest Associated symptoms: Denies other symptoms Treatments Prior to Arrival: None - Related Data Previous Rx's Medication Instructions Recorded Cephalexin [Keflex] 500 mg PO QID #28 cap 02/17/18 Cephalexin [Keflex] 500 mg PO QID #28 cap 02/17/18 Allergies Allergy/AdvReac Type Severity Reaction Status Date / Time epinephrine Allergy muscle Verified 10/10/15 07:12 tension/FAUSTINO gemfibrozil Allergy hypergylcem Verified 10/10/15 07:12 ia promethazine HCl Allergy RASH Verified 09/29/16 04:43 [From Phenergan] Travel Screening - Travel/Exposure Within Last 30 Days Have you traveled within the last 30 days?: No Review of Systems Constitutional: Denies: Chills, Fever, Malaise, Weakness Eyes: Denies: Eye discharge, Eye pain, Vision change ENT: Denies: Congestion, Throat pain Respiratory: Denies: Cough Cardiovascular: Denies: Chest pain Endocrine: Denies: Fatigue Gastrointestinal: Denies: Abdominal pain, Diarrhea, Nausea, Vomiting Genitourinary: Denies: Dysuria, Frequency Musculoskeletal: Denies: Arthralgia, Myalgia Skin: Reports: As per HPI, Change in color, Rash Neurological: Denies: Abnormal gait Psychiatric: Denies: Anxiety Hematological/Lymphatic: Denies: Blood Clots, Easy bleeding, Easy bruising, Swollen glands Past Medical History - SOCIAL HISTORY Smoking Status: Former smoker - RESPIRATORY Hx Respiratory Disorders: Yes Hx Pneumonia: Yes - CARDIOVASCULAR Hx Cardio Disorders: No - NEURO Hx Neuro Disorders: Yes Hx Neuropathy: Yes 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 - GI Hx GI Disorders: No Hx Abdominal Pain: Yes Hx Nausea/Vomiting: Yes Comment:: C-dif x2 in last 15 mos (12/2016) - Hx Genitourinary Disorders: Yes Hx Kidney Stones: Yes - ENDOCRINE Hx Endocrine Disorders: Yes Hx Diabetes: Yes Hx Thyroid Disease: No - MUSCULOSKELETAL Hx Musculoskeletal Disorders: No - PSYCH Hx Psych Problems: Yes Hx Depression: Yes - HEMATOLOGY/ONCOLOGY Hx Hematology/Oncology Disorders: Yes Comment:: severe chronic neutropenia Family Medical History Any Significant Family History?: Yes Hx Cancer: Brother/Sister Hx Heart Disease: Grandparents Hx Stroke: Grandparents Physical Exam - General General Appearance: Alert, Oriented x3, Cooperative, No acute distress Limitations: No limitations - Head Head exam: Atraumatic - Eye Eye exam: Normal appearance. negative: Conjunctival injection, Scleral icterus - ENT ENT exam: Normal exam Ear exam: Normal external inspection Nasal Exam: Normal inspection Mouth exam: Normal external inspection - Neck Neck exam: Normal inspection - Cardiovascular Cardiovascular Exam: Regular rate, Normal rhythm, Normal heart sounds - GI/Abdominal GI/Abdominal exam: Soft - Rectal Rectal exam: Deferred - exam: Deferred - Extremities Extremities exam: Normal capillary refill. negative: Normal inspection Image of Feet: 1 - 1.5cm erythema medial ankle, no swelling, no spreading erythema or streaking, no pustules, normal ROM, No joint swelling, no foot tenderness or swelling, intact DP pulse, no calf tenderness. - Back Back exam: Reports: Full ROM - Neurological Neurological exam: Alert, Oriented X3 - Psychiatric Psychiatric exam: negative: Agitated, Anxious - Skin Skin exam: Rash Course Vital Signs 02/17/18 07:14 Temperature 97.8 F Pulse Rate 96 H Respiratory 20 Rate Blood Pressure 136/71 Pulse Ox 99 - Reevaluation(s) Reevaluation #1: His last tetanus was about 7 years ago. He has an appointment with his doctor today at 4pm. He will review his records with his doctor and recheck the ankle with his doctor at that time. 02/17/18 07:39 I explained the findings at this time are very minimal but early infection is possible. He will recheck the ankle with his doctor this afternoon to monitor for any changes/worsening. 02/17/18 07:44 Disposition Disposition: Discharge Clinical Impression: Insect bite Disposition: Home, Self-Care Condition: (1) Good Instructions: Insect Bite or Sting (ED) Additional Instructions: See your doctor as scheduled at 4pm today Take the Keflex as directed Be seen again if worse, swelling, fever or spreading redness Prescriptions: Cephalexin [Keflex] 500 mg PO QID #28 cap Cephalexin [Keflex] 500 mg PO QID #28 cap Forms: Patient Portal Access Time of Disposition: 07:29 Quality - Quality Measures Quality Measures: N/A - Blood Pressure Screening Does Patient Have Any of the Following: No Blood Pressure Classification: Pre-Hypertensive BP Reading Systolic Measurement: 136 Diastolic Measurement: 71 Screening for High Blood Pressure: < Pre-Hypertensive BP, F/U Documented > [ [id number]] Pre-Hypertensive Follow-up Interventions: Referral to alternative/primary care provider.
== END 2018-02-17 07:47 | disposition home or self-care (01) ==
LOC: ER 07:12
DX: S90.562A Insect bite (nonvenomous), left ankle, initial encounter (principal); W57.XXXA Bitten or stung by nonvenomous insect and other nonvenomous arthropods, initial encounter; E11.9 Type 2 diabetes mellitus without complications; Z87.891 Personal history of nicotine dependence
CPT/HCPCS: 99282

== ENCOUNTER 2018-12-20 21:35 | Emergency (ER) | payer OTHER ==
[2018-12-20] MEDS ORDERED: MORPHINE SULFATE 10MG/1ML **1ML VIAL IVP ONE ×2 (21:47→22:31)
--- NOTE | 2018-12-20 21:47 | Emergency Department Record ---
History of Present Illness - General Chief Complaint: Shortness of breath Stated Complaint: FAUSTINO/ CHEST PRESSURE Time Seen by Provider: 12/20/18 21:41 Source: Patient Mode of Arrival: Ambulatory Limitations: No limitations - History of Present Illness Initial Comments: 63 yo male presents with a concern that he is developing pneumonia. He has shortness of breath, non productive cough/congestion and a feeling pain in the chest. He states he was seen in October at [facility] with the same pain and was diagnosed with pneumonia. He states he had a cardiac ablation at the [facility] 3 weeks ago for atrial flutter. This went well without complications. Tonights symptoms developed over the course of the evening. He states he has had pneumonia "30 times" prior and it starts like this every time. He is coughing but no sputum is coming up. He is on Eliquis and does not take aspirin and states he was instructed not to take aspirin by his doctors at the [facility]. He declines aspirin currently. No leg pain or swelling. No nausea, vomiting or diarrhea. He has a PCP at the [facility]. 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 He had a normal cath with normal coronary arteries in July. He had normal cardiac testing in October with the same pain at [facility]. MD Complaint: Chest pain, Shortness of breath -: Hour(s) (4) Severity: Moderate Quality: Other (heavy feeling) Consistency: Constant Improves With: Nothing Worsens With: Nothing Known History Of: Other - Related Data Home Medications Medication Instructions Recorded Confirmed Last Taken Apixaban [Eliquis] 5 mg PO BID 12/20/18 12/20/18 12/20/18 Carvedilol [Coreg] 6.25 mg PO BID 12/20/18 12/20/18 12/20/18 Diclofenac Sodium [Voltaren] 100 gm TP QID 12/20/18 12/20/18 12/20/18 Digoxin 125 mcg PO DAILY 12/20/18 12/20/18 12/20/18 Previous Rx's Medication Instructions Recorded Amoxicillin/Potassium Clav 1 tab PO BID #14 tab 12/21/18 [Augmentin 875-125 Tablet] Allergies Allergy/AdvReac Type Severity Reaction Status Date / Time epinephrine Allergy muscle Verified 12/20/18 21:39 tension/FAUSTINO gemfibrozil Allergy hypergylcem Verified 12/20/18 21:39 ia promethazine HCl Allergy RASH Verified 12/20/18 21:39 [From Phenergan] Review of Systems Constitutional: Denies: Chills, Fever, Malaise, Weakness Eyes: Denies: Eye discharge ENT: Reports: Congestion. Denies: Ear pain, Epistaxis Respiratory: Reports: Cough, Dyspnea. Denies: Hemoptysis, Stridor, Wheezes Cardiovascular: Reports: Chest pain (sternum hurts). Denies: Dyspnea on exertion, Edema, Palpitations, Syncope Endocrine: Denies: Fatigue Gastrointestinal: Denies: Abdominal pain, Diarrhea, Nausea, Vomiting Genitourinary: Denies: Dysuria, Frequency, Hematuria Musculoskeletal: Denies: Arthralgia, Back pain, Joint swelling, Myalgia Skin: Denies: Bruising, Change in color, Rash Neurological: Denies: Headache, Numbness, Weakness Psychiatric: Denies: Anxiety Hematological/Lymphatic: Denies: Easy bleeding, Easy bruising Past Medical History - SOCIAL HISTORY Smoking Status: Former smoker - RESPIRATORY Hx Respiratory Disorders: Yes Hx Pneumonia: Yes - CARDIOVASCULAR Hx Cardio Disorders: No - NEURO Hx Neuro Disorders: Yes Hx Neuropathy: Yes 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 - GI Hx GI Disorders: No Hx Abdominal Pain: Yes Hx Nausea/Vomiting: Yes Comment:: C-dif x2 in last 15 mos (12/2016) - Hx Genitourinary Disorders: Yes Hx Kidney Stones: Yes - ENDOCRINE Hx Endocrine Disorders: Yes Hx Diabetes: Yes Hx Thyroid Disease: No - MUSCULOSKELETAL Hx Musculoskeletal Disorders: No - PSYCH Hx Psych Problems: Yes Hx Depression: Yes - HEMATOLOGY/ONCOLOGY Hx Hematology/Oncology Disorders: Yes Comment:: severe chronic neutropenia Family Medical History Hx Cancer: Brother/Sister Hx Heart Disease: Grandparents Hx Stroke: Grandparents Physical Exam - General General Appearance: Alert, Oriented x3, Cooperative, No acute distress Limitations: No limitations - Head Head exam: Atraumatic, Normal inspection - Eye Eye exam: Normal appearance, PERRL. negative: Conjunctival injection, Scleral icterus - ENT ENT exam: Normal exam, Mucous membranes moist Ear exam: Normal external inspection Nasal Exam: Normal inspection Mouth exam: Normal external inspection - Neck Neck exam: Normal inspection. negative: Lymphadenopathy - Respiratory Respiratory exam: Normal lung sounds bilaterally, Chest wall tenderness (He has reproducible tenderness of the chest with palpation), Rhonchi (few scattered). negative: Decreased breath sounds, Prolonged expiratory, Wheezes - Cardiovascular Cardiovascular Exam: Regular rate, Normal rhythm, Normal heart sounds. neg ative: Diastolic murmur, Systolic murmur, Tachycardia Peripheral Pulses: 2+: Radial (R), Radial (L) - GI/Abdominal GI/Abdominal exam: Soft. negative: Tenderness - Rectal Rectal exam: Deferred - exam: Deferred - Extremities Extremities exam: Normal inspection, Normal capillary refill, Other (No calf tenderness or edema). negative: Calf tenderness, Pedal edema, Tenderness - Back Back exam: Denies: CVA tenderness (R), CVA tenderness (L) - Neurological Neurological exam: Alert, Normal gait, Oriented X3. negative: Altered, Motor se nsory deficit - Psychiatric Psychiatric exam: Normal affect, Normal mood. negative: Agitated, Anxious - Skin Skin exam: Dry, Intact, Normal color, Warm Course - Reevaluation(s) Reevaluation #1: 12/20/18 21:45 EKG #1: 21:37 Rate: 89 Rhythm: sinus Bethune: normal Intervals: normal ST segments: NS inferior/lateral t wave changes. No ST elevation. He is on Digoxin. Likely Digoxin effect on EKG. Prior: 09/28/16. NOTE: The patient declines aspirin stating his [facility] physicians instructed him to not take it. 12/20/18 22:02 He is off Cialis. He did take his Eliquis today already EMR: Cath report 07/31/2018 Non ischemic cardiomyopathy, normal coronary angiogram. EMR: The patient admission in October to [facility] for chest pain was reviewed. Enzymes were negative. CTA of the chest was negative for PE or aneurysm at that time but infiltrate noted suggesting pneumonia. 12/20/18 22:04 12/20/18 22:05 The CBC and BMP were reviewed The WBC is 12 The CR is 1.3 with GFR of 59. 12/20/18 22:22 12/20/18 22:24 Glucose is 363 Troponin is normal at 0.01 12/20/18 22:36 The patient's PCP and Location Man are at the [facility] per the patient. He has also had care through [facility] 12/20/18 22:49 Multiple staff have been making calls to the [facility] to contact on-call or transfer services without success. Will continue efforts. Merged with [facility] [phone] 12/20/18 22:58 The patient ambulatory care coordinator was contacted The [facility] is closed to transfers due to full bed capacity, no telemetry beds 12/20/18 23:04 The CXR was negative for acute changes The patient has had care at [facility] in the 2019 through [facility]. [facility] [employer] was contacted to discuss with solutions development analyst [facility] 12/20/18 23:20 EKG #2: 23:03 Rate: 88 Rhythm: sinus Bethune: left Intervals: normal ST segments: no acute changes Prior: #1 no changes The case was discussed with Dr Samuel of [facility] at [facility]. His available records were reviewed including his non ischemic cardiomyopathy, normal coronaries on his cath in July, October [facility] admission for chest pain with CTA of the chest demonstrating pneumonia (no PE, dissection, aneurysm) today's EKGs, normal troponin. The options at this time include transfer to [facility], serial enzymes at [facility] and reassess. Given his normal troponin and there would not be any stress testing until Saturday at either facility the patient will be given his options of care at this time of transfer or remain for serial enzymes at [facility]. This was discussed with the patient at length. He prefers not to be transferred currently. He agrees with serial enzymes then discuss again. He strongly does not think this is his heart and prefers to wait for enzymes since he had normal coronaries in July. If enzymes turn positive then transfer at that time. He understands his options clearly and his questions addressed. He does not have tachycardia, hypoxia or other signs strongly suggesting PE. He is on Eliquis already. He has had a CTA of the chest in the last 2 months that was negative for PE, Dissection, or Aneurysm. With a cough and a tender chest those diagnoses are low suspicion given his recent work ups for similar chest pain. 12/20/18 23:29 Repeat Troponin is normal 0.01 (#2) 12/21/18 00:21 12/21/18 05:30 The repeat Troponin is normal (#3) The patient and I again discussed his tests, the results, and the options again. He was offered transfer as per our initial conversation with Dr Samuel. He still declines transfer. With shared decision making that his symptoms are atypical, his results are negative and three sets of enzymes are negative, he does not want transfer for further work up. He will be sent home on antibiotics for his cough and he will call his doctors Saturday. We discussed being seen again here in the ER or at [facility] sooner if any concerns. At [facility] he is very alert, no signs of drowsiness and stable for DC. Pain medication was given approximately 7 hours ago and he shows no signs of lasting effect. He is safe for self discharge. Medical Decision Making - Lab Data Result diagrams: 12/20/18 21:45 12/20/18 21:45 Disposition Disposition: Discharge Clinical Impression: Cough, Bronchitis Chest pain Qualifiers: Chest pain type: unspecified Qualified Code(s): R07.9 - Chest pain, unspecified Disposition: Home, Self-Care Condition: (1) Good Instructions: Chest Pain (ED) Additional Instructions: Call your doctor for the next available follow up appointment this week Review this ER visit and the tests performed with your family doctor and your heart doctor Return to the ER for a recheck if worse, any new concerns or questions Take the prescriptions provided as directed Prescriptions: Amoxicillin/Potassium Clav [Augmentin 875-125 Tablet] 1 tab PO BID #14 tab Forms: Patient Portal Access Time of Disposition: 05:39 Quality - Quality Measures Quality Measures: N/A - Blood Pressure Screening Does Patient Have Any of the Following: Active Dx of HTN Blood Pressure Classification: Hypertensive Reading Systolic Measurement: 140 Diastolic Measurement: 68 Screening for High Blood Pressure: Patient Exclusion, Hx of HTN [G9744]
[2018-12-20 21:54] LABS: BASO % 0.3 % (0-6); EOS % 5.4 % (0-6); GRAN % 76.3 % (47-80); HEMATOCRIT 42.3 % (42.0-52.0); HEMOGLOBIN 14.8 gm/dl (14.0-18.0); MEAN CELL VOLUME 88.1 fl (81-97); MEAN CORPUSCULAR HEMOGLOBIN 30.8 pg (27-33); MEAN PLATELET VOLUME 9.5 fl (7.4-10.4); PLATELET COUNT 180 K/uL (130-400); RED CELL DISTRIBUTION WIDTH 14.1 % (11.5-14.5); WHITE BLOOD COUNT W/O DIFF 12.5 K/uL (4.2-12.2)
[2018-12-20 22:03] LABS: BLOOD UREA NITROGEN 22 mg/dL (8-23); CREATININE 1.3 mg/dL (0.7-1.2); EST GLOMERULAR FILTRATION RATE 59 mL/min
[2018-12-20 22:04] LABS: TOTAL PROTEIN 6.9 g/dL (6.6-8.7)
[2018-12-20 22:05] LABS: INR 1.1; PARTIAL THROMBOPLASTIN TIME 30.8 SECONDS (24.5-39.1); PROTHROMBIN TIME (PATIENT) 10.8 SECONDS (9.5-12.1)
[2018-12-20 22:06] LABS: GLUCOSE,RANDOM 363 mg/dL (74-109)
[2018-12-20 22:09] LABS: ALB/GLOB RATIO 1.9 (1.1-1.8); ALBUMIN 4.5 g/dL (4.0-5.0); ALKALINE PHOSPHATASE 206 U/L (40-129); ALT/SGPT 14 U/L (<41); AST/SGOT 14 U/L (10.0-50.0)
[2018-12-20] MEDS ORDERED: HUMULIN R 100 UNIT/ML VIAL SQ ONE (22:23)
[2018-12-20] MEDS ORDERED: NITROGLYCERIN 0.4MG SL TABLET #25 BTL SL ONE (22:34)
[2018-12-20] MEDS: NITROGLYCERIN 0.4MG SL TABLET #25 BTL SL PRN ×3 (22:41→22:53)
[2018-12-20] MEDS ORDERED: MIRTAZAPINE 15 MG TABLET PO STA (23:37)
[2018-12-20] MEDS ORDERED: AMOXICILLIN/POTASSIUM CLAV 875MG/125MG TABLET PO ONE (23:41)
--- NOTE | 2018-12-23 07:11 | RADIOLOGY REPORT ---
EXAM: CHEST, TWO VIEWS HISTORY: PATIENT HAS UPPER CHEST PAIN AND COUGH. HISTORY OF PNEUMONIA. TECHNIQUE: Two views of the chest are provided along with the comparison chest x-ray dated 09/28/16. FINDINGS: The cardiomediastinal silhouette is within normal limits for size and contour. The che appear unremarkable. Linear subsegmental atelectasis and/or infiltrate is noted at the right lung base. There are questionable 9.7 mm nodule within the right upper lobe, 9.5 mm density within the right middle lung, 10 mm density within the left lower lobe, and 9.6 mm density within the left mid lung field. These findings can be seen on the prior chest x-ray as well as the prior CT scan of the abdomen and pelvis dated 01/11/17. These can also be visualized on a prior CT scan of the abdomen and pelvis dated 03/18/14. Therefore, these findings are likely a chronic process. They may represent rheumatoid nodules. Clinical correlation is recommended. No new areas of focal consolidation, pleural effusion, or pneumothorax is noted. IMPRESSION: BILATERAL LUNG NODULES ARE NOTED DESCRIBED. THESE FINDINGS REPRESENT A CHRONIC PROCESS. NO NEW FOCAL CONSOLIDATION OR PLEURAL EFFUSION IS NOTED. FOLLOW-UP CT SCAN OF THE CHEST CAN BE OBTAINED IF CLINICALLY INDICATED. JOB NUMBER: [id number] MTDD
== END 2018-12-21 05:51 | disposition home or self-care (01) ==
LOC: ER 21:35
DX: R07.89 Other chest pain (principal); E11.9 Type 2 diabetes mellitus without complications; Z79.4 Long term (current) use of insulin; D70.9 Neutropenia, unspecified; Z87.891 Personal history of nicotine dependence; I42.9 Cardiomyopathy, unspecified; Z79.02 Long term (current) use of antithrombotics/antiplatelets; J40 Bronchitis, not specified as acute or chronic
CPT/HCPCS: 93041; 99284 ×2; 96374; 96372; 85025; 85730; 85610; 80053; 84484; 71046; 93005; 93010; J2270